=== PATIENT | female | born 1980 | race Caucasian/White ===

== ENCOUNTER 2022-07-04 14:14 | Emergency (ER) | payer SELFPAY ==
[2022-07-04 15:34] LABS: Urine Blood Negative (Negative); Urine Glucose Negative (Negative); Urine Protein Negative (Negative); Urine Specific Gravity <=1.005 (1.005-1.030); Urine pH 5.5 (5.0-7.0)
[2022-07-04 15:41] LABS: Urine Bacteria <20 /HPF (<20); Urine RBC <5 /HPF (None Seen)
[2022-07-04] MEDS ORDERED: KETOROLAC 30 MG/ML INJ ONE (15:44)
[2022-07-04] MEDS ORDERED: DIAZEPAM 5 MG TABLET ONE (15:45)
--- NOTE | 2022-07-04 17:17 | ER ---
Nurse's Notes [facility] Name: Karla Bravo Age: 42 yrs Sex: Female : 1980 Arrival Date: 07/04/2022 Time: 14:16 Bed 12 Private MD: Diagnosis: Polyarthritis, unspecified Presentation: 07/04 14:49 Chief complaint: Patient states: My legs, hips and every bone in my body hurt. I cannot kr3 sleep and it seems to be getting worse over the last 2 weeks. I have used cream and OTC medications and nothing is helping. Coronavirus screen: Vaccine status: Patient reports being unvaccinated. Ebola Screen: Patient denies travel to an Ebola-affected area in the 21 days before illness onset. Initial Sepsis Screen: Does the patient meet any 2 criteria? No. Patient's initial sepsis screen is negative. Does the patient have a suspected source of infection? No. Patient's initial sepsis screen is negative. Risk Assessment: Do you want to hurt yourself or someone else? Patient reports no desire to harm self or others. Onset of symptoms was June 20, 2022. 14:49 Method Of Arrival: Ambulatory kr3 14:49 Acuity: MICHAEL 3 kr3 Triage Assessment: 14:56 General: Appears in no apparent distress. comfortable, Behavior is calm, cooperative, kr3 appropriate for age. Pain: Complains of pain in all joints. Historical: - Allergies: 14:55 No Known Allergies; kr3 - PMHx: 14:55 None; kr3 - PSHx: 14:55 section; kr3 - Immunization history:: Adult Immunizations not up to date. - Social history:: Smoking status: Reported history of juuling and/or vaping. Assessment: 17:10 Reassessment: Patient is alert, oriented x 3, equal unlabored respirations, skin aa5 warm/dry/pink. Patient states symptoms have not improved. Vital Signs: 14:49 BP 121 / 93; Pulse 91; Resp 17; Temp 97.8(TE); Pulse Ox 98% on R/A; Height 5 ft. 4 in. kr3 ; Pain 8/10; 17:10 BP 124 / 78; Pulse 84; Resp 16 S; Pulse Ox 97% on R/A; aa5 14:49 Pain Scale: Adult kr3 ED Course: 14:16 Patient arrived in ED. rg4 14:21 Gracie Cramer FNP-C is [facility]. snw 14:21 Tahir Faustin MD is Attending Physician. snw 14:55 Triage completed. kr3 14:57 Arm band placed on right wrist. kr3 15:59 Lumbar Spine (3 Views) XRAY In Process Unspecified. EDMS Administered Medications: 15:45 Drug: Ketorolac IM 30 mg Route: IM; Site: right deltoid; kr3 17:11 Follow up: Response: No adverse reaction aa5 15:45 Drug: Diazepam PO 5 mg Route: PO; kr3 17:10 Follow up: Response: No adverse reaction aa5 Outcome: 17:17 Discharge ordered by . snw Signatures: Dispatcher [employer] EDMS Gracie Cramer FNP-C CHAIR MECHANIC-Csnw Lety Wright RN RN aa5 Alana Noyola rg4 Geeta Isidro RN RN kr3
--- NOTE | 2022-07-04 17:17 | EDPHYS ---
Physician Documentation [facility] Name: Karla Bravo Age: 42 yrs Sex: Female : 1980 Arrival Date: 07/04/2022 Time: 14:16 Bed 12 Private MD: ED Physician Tahir Faustin HPI: 07/04 15:27 This 42 yrs old Female presents to ER via Ambulatory with complaints of Pain All Over. snw 15:27 pt states for the past two weeks all of her joints hurt, no visual changes, no trauma, snw no falls. Severity of symptoms: At their worst the symptoms were severe. The patient has not experienced similar symptoms in the past. The patient has not recently seen a physician. Historical: - Allergies: 14:55 No Known Allergies; kr3 - PMHx: 14:55 None; kr3 - PSHx: 14:55 section; kr3 - Immunization history:: Adult Immunizations not up to date. - Social history:: Smoking status: Reported history of juuling and/or vaping. ROS: 15:27 Constitutional: Negative for fever, chills, and weight loss, Eyes: Negative for injury, snw pain, redness, and discharge, ENT: Negative for injury, pain, and discharge, Neck: Negative for injury, pain, and swelling, Cardiovascular: Negative for chest pain, palpitations, and edema, Respiratory: Negative for shortness of breath, cough, wheezing, and pleuritic chest pain, Abdomen/GI: Negative for abdominal pain, nausea, vomiting, diarrhea, and constipation, Back: Negative for injury and pain, : Negative for injury, bleeding, discharge, and swelling, Skin: Negative for injury, rash, and discoloration, Neuro: Negative for headache, weakness, numbness, tingling, and seizure, Psych: Negative for depression, anxiety, suicide ideation, homicidal ideation, and hallucinations. 15:27 MS/extremity: Positive for pain, paresthesias, of the joints. Exam: 15:28 Constitutional: This is a well developed, well nourished patient who is awake, alert, snw and in no acute distress. Head/Face: Normocephalic, atraumatic. Eyes: Pupils equal round and reactive to light, extra-ocular motions intact. Lids and lashes normal. Conjunctiva and sclera are non-icteric and not injected. Cornea within normal limits. Periorbital areas with no swelling, redness, or edema. ENT: Nares patent. No nasal discharge, no septal abnormalities noted. Tympanic membranes are normal and external auditory canals are clear. Oropharynx with no redness, swelling, or masses, exudates, or evidence of obstruction, uvula midline. Mucous membranes moist. Neck: Trachea midline, no thyromegaly or masses palpated, and no cervical lymphadenopathy. Supple, full range of motion without nuchal rigidity, or vertebral point tenderness. No Meningismus. Chest/axilla: Normal chest wall appearance and motion. Nontender with no deformity. No lesions are appreciated. Cardiovascular: Regular rate and rhythm with a normal S1 and S2. No gallops, murmurs, or rubs. Normal PMI, no JVD. No pulse deficits. Respiratory: Lungs have equal breath sounds bilaterally, clear to auscultation and percussion. No rales, rhonchi or wheezes noted. No increased work of breathing, no retractions or nasal flaring. Abdomen/GI: Soft, non-tender, with normal bowel sounds. No distension or tympany. No guarding or rebound. No evidence of tenderness throughout. Back: No spinal tenderness. No costovertebral tenderness. Full range of motion. Skin: Warm, dry with normal turgor. Normal color with no rashes, no lesions, and no evidence of cellulitis. Neuro: Awake and alert, GCS 15, oriented to person, place, time, and situation. Cranial nerves II-XII grossly intact. Motor strength 5/5 in all extremities. Sensory grossly intact. Cerebellar exam normal. Normal gait. 15:28 Musculoskeletal/extremity: Extremities: all appear grossly normal, with no appreciated pain with palpation, ROM: limited active range of motion due to pain, limited passive range of motion due to pain, Circulation is intact in all extremities. the right hip, lateral aspect of right thigh, right ankle and right knee Severe pain noted. Joints: all joints tender, no edema, no warmth, + limping on right. Vital Signs: 14:49 BP 121 / 93; Pulse 91; Resp 17; Temp 97.8(TE); Pulse Ox 98% on R/A; Height 5 ft. 4 in. kr3 ; Pain 8/10; 17:10 BP 124 / 78; Pulse 84; Resp 16 S; Pulse Ox 97% on R/A; aa5 14:49 Pain Scale: Adult kr3 MDM: 15:19 Patient medically screened. snw 15:29 Differential Diagnosis flu, joint pain, fatigue. Data reviewed: vital signs, nurses snw notes. 07/04 15:11 Order name: COVID-19/FLU A+B snw 07/04 15:11 Order name: Urine Microscopic Only; Complete Time: 15:48 snw 07/04 15:11 Order name: Urine Dipstick-Ancillary (obtain specimen); Complete Time: 15:32 snw 07/04 15:11 Order name: Urine Test (obtain specimen); Complete Time: 15:32 snw 07/04 15:30 Order name: Lumbar Spine (3 Views) XRAY snw 07/04 15:34 Order name: Urine Dipstick-Ancillary; Complete Time: 15:37 EDMS Administered Medications: 15:45 Drug: Ketorolac IM 30 mg Route: IM; Site: right deltoid; kr3 17:11 Follow up: Response: No adverse reaction aa5 15:45 Drug: Diazepam PO 5 mg Route: PO; kr3 17:10 Follow up: Response: No adverse reaction aa5 Disposition Summary: 07/04/22 17:17 Discharge Ordered Location: Home snw Condition: Stable snw Diagnosis - Polyarthritis, unspecified snw Followup: snw - With: Emergency Department - When: As needed - Reason: Worsening of condition Followup: snw - With: Private Physician - When: 2 - 3 days - Reason: Recheck today's complaints, Continuance of care, Re-evaluation by your physician Forms: - Medication Reconciliation Form snw - Thank You Letter snw - Antibiotic Education snw - Prescription Opioid Use snw Signatures: Dispatcher [employer] EDMS Gracie Cramer FNP-C RESEARCH NURSE-Csnw Geeta Isidro RN RN kr3 Lety Wright RN aa5
--- NOTE | 2022-07-04 17:42 | RAD REPORT ---
EXAM DESCRIPTION: RAD - Lumbar Spine 3 Views - 07/04/2022 3:57 pm CLINICAL HISTORY: Back pain FINDINGS: No fracture or dislocation is seen. Bones may the osteoporotic. Minimal scoliosis involves the spine Large amount of stool within the colon
[2022-07-04 18:22] LABS: SARS-COV-2 RT PCR NEGATIVE (NEGATIVE)
[2022-07-04 19:33] VITALS: BP 127/77; O2SAT 99
[2022-07-04 19:50] VITALS: TEMP 98.6
== END 2022-07-04 17:46 | disposition home or self-care (01) ==
LOC: ER 14:14
DX: M13.0 Polyarthritis, unspecified (principal); Z20.822 Contact with and (suspected) exposure to COVID-19
CPT/HCPCS: 0240U; 72100; 81003; 81015; 96372; 99283

== ENCOUNTER 2024-03-17 17:23 | Emergency (ER) | payer SELFPAY ==
--- NOTE | 2024-03-17 17:52 | RAD REPORT ---
EXAM: XR RIGHT HAND HISTORY: Pain. PAIN COMPARISON: None TECHNIQUE: Multiple projections of the right hand submitted. FINDINGS: No evidence of acute fracture or dislocation. Joint alignment is maintained. No soft tissu e swelling is seen.. No significant degenerative changes are present. IMPRESSION: No significant bone or joint abnormality.
--- NOTE | 2024-03-17 18:09 | RAD REPORT ---
EXAM: CT brain without contrast HISTORY: TRAUMA COMPARISON: None TECHNIQUE: Multiple contiguous axial images were obtained and a CT of the brain without contrast. Sag ittal and coronal reformats were performed. One or more of the following dose reduction techniques were used: Automated exposure control, adjust ment of the mA and/or kV according to patient size, and/or iterative reconstruction. FINDINGS: No evidence of hydrocephalus, intracranial hemorrhage, or extra-axial fluid collection. The brain is normal in morphology. No evidence of midline shift or areas of brain edema. The calvarium is intact. The visualized paranasal sinuses and mastoid air cells are essentially clear . Nasal turbinate hypertrophy noted. IMPRESSION: No evidence of acute intracranial abnormality.
[2024-03-17 18:33] LABS: Absolute Monocytes 0.2 K/uL (0.1-1.3); Absolute Neutrophil 5.5 K/uL (1.8-8.0); Basophils % 0.2 % (0-1.3); Eosinophils % 0.1 % (0-4.4); Hematocrit 43.9 % (36.0-45.0); Hemoglobin 14.8 g/dL (12.0-15.0); Lymphocytes % 25.5 % (15.3-44.8); MCH 30.4 pg (27.0-35.0); MCHC 33.8 g/dL (32.0-36.0); MCV 90.2 fL (80-100); MPV 8.3 fL (7.6-11.3); Monocytes % 3.1 % (3.3-12.3); Neutrophils % 71.1 % (41.7-73.7); Nucleated Red Blood Cells % 0.1 % (0-0); Platelets 236 thou/uL (152-406); RBC Red Blood Cell Count 4.87 M/uL (3.86-4.86); Red Cell Distribution Width 15.1 % (12.1-15.2)
[2024-03-17 18:39] LABS: PT Prothrombin Time 11.8 SECONDS (9.4-12.5); PTT, Activated Partial Thromb 33.9 SECONDS (24.3-36.9); Protime INR 1.06
[2024-03-17 18:58] LABS: ALT/SGPT 17 U/L (13-56); AST/SGOT 12 U/L (15-37); Albumin 3.5 g/dL (3.4-5.0); Albumin/Globulin Ratio 0.9 (1.1-1.8); Alkaline Phosphatase 53 U/L (45-117); Anion Gap 11.5 mEq/L (5.0-15.0); BUN Blood Urea Nitrogen 12 mg/dL (7-18); Bicarbonate 22 mEq/L (21-32); Bilirubin Direct < 0.2 mg/dL (0-0.2); Bilirubin Total 0.2 mg/dL (0.2-1.0); Globulin 3.8 g/dL (2.3-3.5); Glomerular Filtration Rate 98 ml/min (=/>90); Glucose Level 105 mg/dL (74-106); Potassium 3.5 mEq/L (3.5-5.1); Protein, Total 7.3 g/dL (6.4-8.2); Sodium Level 147 mEq/L (136-145)
[2024-03-17] MEDS ORDERED: NA CHLORIDE 0.9% 1,000 ML ONE (19:20)
[2024-03-17] MEDS ORDERED: THIAMINE 200 MG/2 ML INJ ONE (19:47)
[2024-03-17] MEDS ORDERED: MULTIVITAMINS 10 ML VIAL (INJ) IV ONE (19:47)
[2024-03-17] MEDS ORDERED: FOLIC ACID 5 MG/ML VIAL ONE (19:48)
[2024-03-17 20:01] LABS: Barbiturates NEGATIVE (NEGATIVE); Benzodiazepines POSITIVE (NEGATIVE); Cocaine NEGATIVE (NEGATIVE); METHAMPHETAM NEGATIVE (NEGATIVE); Methadone NEGATIVE (NEGATIVE); Opiates NEGATIVE (NEGATIVE); Phencyclidine NEGATIVE (NEGATIVE); THC Cannibis NEGATIVE (NEGATIVE)
[2024-03-17 20:14] LABS: Specific Gravity 1.005 (1.005-1.030)
[2024-03-17 20:18] LABS: Specific Gravity 1.005 (1.005-1.030); Sqamous Epithelial None Seen /HPF (None Seen); Urine Bacteria <20 /HPF (<20); Urine Bilirubin NEGATIVE (Negative); Urine Blood 3+ (OVER) (Negative); Urine Clarity Clear (Clear); Urine Color Colorless (Yellow); Urine Crystals Unidentified Few /HPF (None Seen); Urine Culture Reflex Order NOT NEEDED; Urine Glucose NEGATIVE (Negative); Urine Ketones NEGATIVE (Negative); Urine Microscopic Reflex YN ORDER UMIC; Urine Nitrite NEGATIVE (Negative); Urine Protein NEGATIVE (Negative); Urine Urobilinogen Normal (Normal); Urine WBC <5 /HPF (<5); Urine pH 5.5 (5.0-7.0)
--- NOTE | 2024-03-17 21:13 | ER ---
Nurse's Notes [facility] Name: Karla Bravo Age: 43 yrs Sex: Female : 1980 Arrival Date: 03/17/2024 Time: 17:23 Bed 19 Private MD: Diagnosis: Alcohol abuse with intoxication Presentation: 03/17 17:27 Chief complaint: EMS states: POLICE SHOWED ON SCENE OF DOMESTIC DISTURBANCE, PT SMELLS bp OF ETOH AND CLAIMS UNWITNESSED SYNCOPE. Coronavirus screen: At this time, the client does not indicate any symptoms associated with coronavirus-19. Ebola Screen: No symptoms or risks identified at this time. Initial Sepsis Screen: Does the patient meet any 2 criteria? Altered Mental Status. HR > 90 bpm. No. Patient's initial sepsis screen is negative. Does the patient have a suspected source of infection? No. Patient's initial sepsis screen is negative. Risk Assessment: Do you want to hurt yourself or someone else? Patient reports no desire to harm self or others. Onset of symptoms is unknown. Care prior to arrival: IV initiated. 20 GA, in the right wrist, Glucose check: 118. 17:27 Method Of Arrival: EMS: [facility] bp 17:27 Acuity: MICHAEL 3 bp Triage Assessment: 17:30 General: Appears obese, unkempt, Behavior is drowsy. Pain: Unable to use pain scale. bp Patient is disoriented. EENT: No deficits noted. Neuro: Level of Consciousness is lethargic. Cardiovascular: No deficits noted. Respiratory: No deficits noted. GI: No signs and/or symptoms were reported involving the gastrointestinal system. : No signs and/or symptoms were reported regarding the genitourinary system. Derm: No deficits noted. Musculoskeletal: Circulation, motion, and sensation intact. Injury Description: Bruise sustained to right hand. 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 - Infectious Disease History:: Denies. - Social history:: Smoking status: unknown. Screenin:30 [facility] ED Fall Risk Assessment (Adult) History of falling in the last 3 months, bp including since admission Yes- physiologic fall (2 pts) Confusion or Disorientation Yes (5 pts) Intoxicated or Sedated Yes (3 pts) Impaired Gait Yes (1 pt) Mobility Assist Device Used No (0 pt) Altered Elimination No (0 pt) Score/Fall Risk Level 3 or more points = High Risk Oriented to surroundings, Utilized family, sitter, or virtual precision mechanical instrument maker as indicated. Abuse screen: Denies threats or abuse. Denies injuries from another. Nutritional screening: No deficits noted. Tuberculosis screening: No symptoms or risk factors identified. Assessment: 18:30 Reassessment: PT UNCOOPERATIVE WITH HEALTHCARE AND PT SAFETY. REPEATED ATTEMPTS TO EXIT bp BED AND REMOVING MONITOR. FAMILY AT B/S FREQUENTLY REDIRECTING PT. MD AWARE. 19:10 Reassessment: No changes from previously documented assessment. Patient and/or family rg5 updated on plan of care and expected duration. Pain level reassessed. 19:10 General: Appears in no apparent distress. Behavior is calm, drowsy, Smells of alcohol. rg5 Pain: Denies pain. Neuro: Oriented to person, place, time. Cardiovascular: Patient's skin is warm and dry. Respiratory: Airway is patent Trachea midline Respiratory effort is even, unlabored, Respiratory pattern is. GI: Abdomen is round non-distended. : No signs and/or symptoms were reported regarding the genitourinary system. EENT: No signs and/or symptoms were reported regarding the EENT system. Derm: Skin is intact, Skin is dry, Skin is normal. Musculoskeletal: Circulation, motion, and sensation intact. Range of motion:. 21:00 General: Behavior is combative, uncooperative. rg5 21:00 Reassessment: had an argument with her family in the room and wanted to go out off the [facility]. 21:00 General: [place] called due to pt attempting to leave while arguing with family members. kb3 Pt and her son were yelling and cursing at each other in hallway. Son and another visitor were asked to leave the ER. Pt continued yelling and cursing, refusing to go back into the room, swinging her arms and fists, crying. Pt was walked back into the room and assisted back onto the stretcher by DEL Quesada and RN.. 21:07 General: [place] [employer] at bedside speaking with patient.. [email or web address] 22:00 Reassessment: No changes from previously documented assessment. Patient and/or family rg5 updated on plan of care and expected duration. Pain level reassessed. 22:00 General: Behavior is calm, cooperative. rg5 Vital Signs: 17:27 BP 141 / 97; Pulse 120; Resp 23; Temp 98; Pulse Ox 96% ; bp 19:15 BP 131 / 88; Pulse 99; Resp 17; Temp 98; Pulse Ox 100% on R/A; Pain 0/10; rg5 20:45 BP 131 / 89; Pulse 91; Resp 19; Temp 98(O); Pulse Ox 97% on R/A; Pain 0/10; rg5 22:00 BP 121 / 78; Pulse 81; Resp 19; Temp 98; Pulse Ox 99% on R/A; Pain 0/10; rg5 19:15 Pain Scale: Adult rg5 20:45 Pain Scale: Adult rg5 22:00 Pain Scale: Adult rg5 ED Course: 17:27 Patient arrived in ED. bp 17:27 Yenni Vieyra FNP-C is [facility]. kb 17:28 Angel Mcmillan MD is Attending Physician. kb 17:29 Triage completed. bp 17:30 Arm band placed on. bp 17:31 Rk Burrell, RN is Primary Nurse. bp 17:48 Hand Right 3 View XRAY In Process Unspecified. EDMS 18:03 CT Head Brain wo Cont In Process Unspecified. EDMS 18:30 Patient has correct armband on for positive identification. bp 18:30 Maintain EMS IV. Dressing intact. Good blood return noted. Site clean \T\ dry. Gauge \T\ bp site: 20 RWRIST. Flushed with 10 mL NS. 19:30 Awaiting lab results, Awaiting radiology results. rg5 20:30 Resting quietly. Appears to be sleeping. rg5 21:26 No provider procedures requiring assistance completed. rg5 22:02 Awaiting transportation, Awaiting: family is on the way. rg5 22:02 Provided Education on: post er care. rg5 22:02 IV discontinued, bleeding controlled, No redness/swelling at site. Pressure dressing rg5 applied. Administered Medications: 17:32 Drug: NS 0.9% IV 1000 ml IV at 1000 ml once; to be given as a bolus over 60 minutes bp Route: IV; Rate: 1000 ml; Site: right wrist; 21:23 Follow up: IV Status: Completed infusion; IV Intake: 1000ml rg5 19:18 Drug: NS 0.9% IV 1000 ml IV at 1000 ml once; to be given as a bolus over 60 minutes rg5 Route: IV; Rate: 1000 ml; Site: right antecubital; 21:23 Follow up: IV Status: Completed infusion; IV Intake: 1000ml rg5 19:54 Drug: Banana Bag - (Multivitamin IV 1 amp, NS 0.9% IV 1000 ml, Thiamine IV 100 mg, rg5 foLIC Acid IVPB 1 mg) IV at calculated rate once Route: IV; Rate: calculated rate; Site: left hand; 21:22 Follow up: IV Status: Completed infusion; IV Intake: 1000ml rg5 Medication: 19:05 VIS not applicable for this client. rg5 Intake: 21:22 IV: 1000ml; Total: 1000ml. rg5 21:23 IV: 1000ml; Total: 2000ml. rg5 21:23 IV: 1000ml; Total: 3000ml. rg5 Outcome: 21:12 Discharge ordered by . kenya 22:33 Discharged to home with family, rg5 22:33 Condition: stable 22:33 Discharge instructions given to patient, family, 22:33 Patient left the ED. rg5 Signatures: Dispatcher [employer] EDMS Yenni Vieyra, MARYCRUZ SAFETY OFFICER-Rk Alvarez, RN RN bp Macie Cortes RN RN kb3 Romero Kim RN RN rg5 Corrections: (The following items were deleted from the chart) 21:25 21:17 Reassessment: rg5 rg5
--- NOTE | 2024-03-17 21:13 | EDPHYS ---
Physician Documentation [facility] Name: Karla Bravo Age: 43 yrs Sex: Female : 1980 Arrival Date: 03/17/2024 Time: 17:23 Bed 19 Private MD: ED Physician Angel Mcmillan HPI: 03/17 21:44 This 43 yrs old Female presents to ER via EMS with complaints of ETOH INTOXICATION. 21:44 Pt is a 43 year old female who presents for alcohol intoxication. PD was called to kb patient's apartment for domestic dispute. Pt was asked for license, went to another room to get it and fell. Officer reports he went into the room at that time and pt handed him her license from the floor. Officer left the room to talk to partner and when he came back into room pt was asleep and difficult to wake so they called EMS . 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 - Infectious Disease History:: Denies. - Social history:: Smoking status: unknown. ROS: 21:42 Constitutional: As per HPI kb Exam: 21:42 Head/Face: Normocephalic, atraumatic. ENT: Moist Mucous membranes Cardiovascular: kb Regular rate Respiratory: Respirations even and unlabored. No increased work of breathing. Talking in full sentences Skin: Warm, dry with normal turgor. Normal color. 21:42 Musculoskeletal/extremity: Extremities: grossly normal except: noted in the dorsum of right hand: ecchymosis, swelling, Circulation is intact in all extremities. 21:42 Neuro: Mentation: responsive to voice 23:48 ECG was reviewed by the Attending Physician. Vital Signs: 17:27 BP 141 / 97; Pulse 120; Resp 23; Temp 98; Pulse Ox 96% ; bp 19:15 BP 131 / 88; Pulse 99; Resp 17; Temp 98; Pulse Ox 100% on R/A; Pain 0/10; rg5 20:45 BP 131 / 89; Pulse 91; Resp 19; Temp 98(O); Pulse Ox 97% on R/A; Pain 0/10; rg5 22:00 BP 121 / 78; Pulse 81; Resp 19; Temp 98; Pulse Ox 99% on R/A; Pain 0/10; rg5 19:15 Pain Scale: Adult rg5 20:45 Pain Scale: Adult rg5 22:00 Pain Scale: Adult rg5 MDM: 17:28 Medical Screening Exam initiated kb 21:40 Differential diagnosis: head injury, alcohol intoxication, fracture. Data reviewed: vital signs, nurses notes. Historians other than the Patient: EMS: [facility]. Law enforcement: [place] [employer]. Counseling: I had a detailed discussion with the patient and/or guardian regarding the historical points, exam findings, and any diagnostic results supporting the discharge/admit diagnosis, lab results, radiology results, the need for outpatient follow up, a family practitioner, to return to the emergency department if symptoms worsen or persist or if there are any questions or concerns that arise at home. ED course: Pt ambulatory upon discharge. Family states they will stay with pt. . 21:43 Management of patient was discussed with the following: Dr Rodriguez, recommends discharge home. 03/17 17:29 Order name: Acetaminophen; Complete Time: 19:00 kb 03/17 17:29 Order name: Basic Metabolic Panel; Complete Time: 19:00 kb 03/17 17:29 Order name: CBC with Diff; Complete Time: 18:39 kb 03/17 17:29 Order name: ETOH Level; Complete Time: 19:00 kb 03/17 17:29 Order name: Hepatic Function; Complete Time: 19:00 kb 03/17 17:29 Order name: PT-INR; Complete Time: 18:40 kb 03/17 17:29 Order name: Test, Urine; Complete Time: 20:16 kb 03/17 17:29 Order name: Ptt, Activated; Complete Time: 18:40 kb 03/17 17:29 Order name: Salicylate; Complete Time: 19:39 kb 03/17 17:29 Order name: Urinalysis w/ reflexes; Complete Time: 20:20 kb 03/17 17:29 Order name: Urine Drug Screen; Complete Time: 20:05 kb 03/17 17:29 Order name: Hand Right 3 View XRAY; Complete Time: 17:53 kb 03/17 17:29 Order name: CT Head Brain wo Cont; Complete Time: 18:10 kb 03/17 17:29 Order name: EKG; Complete Time: 17:30 kb 03/17 17:29 Order name: EKG - Nurse/Tech; Complete Time: 18:51 kb 03/17 17:29 Order name: IV Saline Lock; Complete Time: 18:42 kb 03/17 17:29 Order name: Labs collected and sent; Complete Time: 18:42 kb 03/17 17:29 Order name: Suicide Screening (Zaria); Complete Time: 17:32 kb EC:48 Rate is 112 beats/min. Rhythm is regular. QRS Brusly is Normal. NE interval is normal at kb 162 msec. QRS interval is normal at 82 msec. QT interval is normal at 491 msec. Administered Medications: 17:32 Drug: NS 0.9% IV 1000 ml IV at 1000 ml once; to be given as a bolus over 60 minutes bp Route: IV; Rate: 1000 ml; Site: right wrist; 21:23 Follow up: IV Status: Completed infusion; IV Intake: 1000ml rg5 19:18 Drug: NS 0.9% IV 1000 ml IV at 1000 ml once; to be given as a bolus over 60 minutes rg5 Route: IV; Rate: 1000 ml; Site: right antecubital; 21:23 Follow up: IV Status: Completed infusion; IV Intake: 1000ml rg5 19:54 Drug: Banana Bag - (Multivitamin IV 1 amp, NS 0.9% IV 1000 ml, Thiamine IV 100 mg, rg5 foLIC Acid IVPB 1 mg) IV at calculated rate once Route: IV; Rate: calculated rate; Site: left hand; 21:22 Follow up: IV Status: Completed infusion; IV Intake: 1000ml rg5 Disposition Summary: 03/17/24 21:12 Discharge Ordered Notes: Location: Home kb Condition: Stable kb Diagnosis - Alcohol abuse with intoxication kb Followup: kb - With: Emergency Department - When: As needed - Reason: Worsening of condition Followup: kb - With: Private Physician - When: 2 - 3 days - Reason: Recheck today's complaints, Continuance of care, Re-evaluation by your physician Discharge Instructions: - Discharge Summary Sheet kb - Alcohol Intoxication, [id number] kb Forms: - Medication Reconciliation Form kb - Antibiotic Education kb - Prescription Opioid Use kb - Patient Portal Instructions kb - Leadership Thank You Letter kb Signatures: Dispatcher [employer] Yenni Marie, CECY-C CECY-Rk Alvarez, RN RN bp Romero Kim, RN RN rg5 Corrections: (The following items were deleted from the chart) 17:30 17:29 ACETAMINOPHEN+C.LAB.BRZ ordered. EDMS EDMS 17:30 17:29 BASIC METABOLIC PANEL+C.LAB.BRZ ordered. EDMS EDMS 17:30 17:29 CBC+H.LAB.BRZ ordered. EDMS EDMS 17:30 17:29 ETHANOL+C.LAB.BRZ ordered. EDMS EDMS 17:30 17:29 HEPATIC FUNCTION+C.LAB.BRZ ordered. EDMS EDMS 17:30 17:29 PROTIME (+INR)+COAG.LAB.BRZ ordered. EDMS EDMS 17:30 17:29 Test, Urine+UC.LAB.BRZ ordered. EDMS EDMS 17:30 17:29 PTT, ACTIVATED+COAG.LAB.BRZ ordered. EDMS EDMS 17:30 17:29 SALICYLATE+C.LAB.BRZ ordered. EDMS EDMS 17:30 17:29 Urinalysis+U.LAB.BRZ ordered. EDMS EDMS 17:30 17:29 URINE DRUG SCREEN+UC.LAB.BRZ ordered. EDMS EDMS 17:30 17:30 Hand Right 3 View+RAD.RAD.BRZ ordered. EDMS EDMS 17:30 17:30 Head Brain Wo Cont+CT.RAD.BRZ ordered. EDMS EDMS
[2024-03-17 23:07] VITALS: TEMP 98
[2024-03-17 23:12] VITALS: BP 131/88; O2SAT 100
--- NOTE | 2024-03-21 14:18 | EKG ---
Test Date: 2024-03-17 Test Time: 18:48:35 Collections Director: AM MEASUREMENT RESULTS: Intervals: Rate: 112 OH: 162 QRSD: 82 QT: 360 QTc: 491 [place]: P: 58 OH: 162 QRS: 49 T: 63 INTERPRETIVE STATEMENTS: Sinus tachycardia Otherwise normal ECG No previous ECG available for comparison Electronically Signed On 03-21-24 14:15:14 WINE CELLAR WORKER by Mo Landry
== END 2024-03-17 22:33 | disposition home or self-care (01) ==
LOC: ER 17:23
DX: F10.129 Alcohol abuse with intoxication, unspecified (principal)
CPT/HCPCS: 36415; 70450; 80048; 80076; 80143; 80179; 80307; 81001; 81025; 82077; 85025; 85610; 85730; 93005; 96361; 96365; 99285; J3411; J7030